=== PATIENT | female | born 1985 | race Two or more races ===

== ENCOUNTER 2018-10-12 08:04 | Emergency (ER) | payer MEDICAID ==
[~2018-10-12] VITALS: Ht 139.7 cm; Wt 61.0 kg
[~2018-10-12 08:04] MED LIST: NO HOME MEDS; PROM25SU46 RC
[2018-10-12 08:08] VITALS: BP 111/79
[2018-10-12 08:48] LABS: URINE HCG NEGATIVE (NEG)
[2018-10-12 08:51] LABS: CLARITY,URINE SLIGHTLY CLOUDY (Clear); COLOR,URINE STRAW (Yellow); GLUCOSE, URINE NEGATIVE (Neg); KETONES,URINE NEGATIVE (Neg); LEUKOCYTE ESTERASE ,URINE NEGATIVE (Neg); NITRITES, URINE NEGATIVE (Neg); OCCULT BLOOD,URINE NEGATIVE (Neg); PROTEIN,URINE NEGATIVE (Neg); UROBILINOGEN,URINE 0.2 E.U/dL (0.2-1.0)
[2018-10-12 08:52] LABS: UA COLLECTION TYPE CLN CATCH MIDSTREAM
[2018-10-12 09:02] LABS: BACTERIA,URINE 1+ /HPF (Neg); MUCUS STRANDS NONE SEEN /LPF (Neg); RBC,URINE NONE SEEN /HPF (0-2); SQUAMOUS EPITHELIAL CELL,UR MODERATE /LPF (FEW); WBC,URINE 0-4 /HPF (0-4)
== END 2018-10-12 09:45 | disposition home or self-care (01) ==
LOC: ER 08:05
DX: R10.84 Generalized abdominal pain (principal); M54.5 Low back pain; Z98.51 Tubal ligation status; Z56.0 Unemployment, unspecified; Z79.899 Other long term (current) drug therapy
CPT/HCPCS: 81001; 81025; 99284